=== PATIENT | male | born 1965 | race Caucasian/White ===

== ENCOUNTER 2019-06-13 05:23 | Day surgery (SDC) | payer BC, SELFPAY ==
--- NOTE | 2019-06-05 03:03 | HP_ITS ---
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 Required: No Is patient in pain?: No Allergies No Known Allergies Allergy (Verified 06/05/19 14:48) Medications Fluticasone 0.05% [Flonase Nasal [place]] 1 spray NASAL DAILY 12/26/14 [History Confirmed 06/05/19] Losartan Potassium [Cozaar] 100 mg PO DAILY 12/26/14 [History Confirmed 06/05/19] Naproxen 500 mg PO PRN PRN 06/07/17 [History Confirmed 06/05/19] hydrochlorothiazide 25 mg tablet 25 mg PO DAILY 06/05/19 [History Confirmed 06/05/19] meclizine 25 mg tablet 25 mg PO BID-TID PRN 06/05/19 [History Confirmed 06/05/19] PFSH Medical History Abdominal pain (Acute) Umbilical hernia (Acute) Hypertension (Chronic) Surgical History History of hernia repair (Acute) Family History Father Diabetes Grandmother Diabetes Social History (Updated 06/05/19 @ 15:03 by Chris Huff MD) Smoking Status: Never smoker alcohol intake: never substance use type: does not use HPI HPI HPI: CALISTA ALBRECHT, is a 54 M who presents to the office today for HPI HPI Surgical H&P: Yes HPI: CALISTA ALBRECHT, is a 54 M who presents to the office today for Preoperative evaluation for a large ventral hernia just superior and encompassing the umbilical area. I originally saw him approximately 2 years ago and at the time we were going to get him scheduled for surgery his blood pressure was significantly high. He was seen by his primary care physician medications were ordered and monitored and he is finally coming back today to get his preoperative evaluation for a ventral hernia repair with mesh. Patient states that his blood pressures have been well controlled on his medications and he does daily blood pressure monitoring at home. He states that the hernia has not gotten any larger. ROS General General: No weight change, appetite, fatigue, colon cancer, breast cancer or weakness HEENT HEENT: No difficulty swallowing, eye injury, eye surgery, swollen glands or hoarseness Endo Endocrine: No thyroid disease, diabetes mellitus, thyroid cancer, Hair loss, heat intolerance or cold intolerance Skin Skin: No rash or changing moles Breast Breast: No left breast lump, right breast lump, nipple discharge, breast pain, abnormal mammogram, abnormal US or breast enlargement Musc Musculoskeletal: No back problems, arthritis, rheumatoid arthritis, gout or joint pain Cardio Cardiovascular: Yes high blood pressure; no murmur, pacemaker, heart disease, atrial fibrillation, heart attack, heart stent, palpitations, shortness of breat with exertion or chest pain Psych Psychiatric: No depression, anxiety or hearing voices Resp Respiratory: No shortness of breath, No sleep apnea, No cough, No COPD, No asthma, No emphysema, No wheezing Gastro Gastrointestinal: Yes abdominal pain, No nausea or vomiting, No diarrhea, No constipation, No blood in stool, No acid reflux, No hemorrhoids, No ulcers, No gallbladder problem, No black,tarry stools Kory Hematologic: No blood thinners, No blood disorders, No bleeding, No anemia, No blood clots Neuro Neurologic: No system reviewed and no additional complaints, except as docu, No as per HPI, No abnormal walking, No abnormal hearing, No abnormal movements, No abnormal speech, No behavioral changes, No burning sensations, No confusion, No seizure-like activity, No unsteadiness, No dizziness, No localized weakness, No frequent falls, No headache(s), No lack of coordination, No loss of vision, No memory loss, No numbness, No other visual disturbances, No radiating pain, No restless legs, No sensory deficit, No fainting, No tingling, No tremor(s), No weakness, No other Exam Const General: no acute distress, well developed, well hydrated Orientation: oriented to person, oriented to place, oriented to time [facility] Head: normocephalic, atraumatic Ears: external ears normal Mouth: moist mucous membranes Eyes Sclera: sclerae normal Pupils: normal by confrontation Neck Neck: no lymphadenopathy noted Neck mass: No Thyroid: thyroid normal, symmetrical Chest Chest palpation & inspection: normal inspection of the chest Breast Palpation: No nipple discharge Resp Effort & Inspection: normal respiratory effort Auscultation: clear to auscultation bilaterally Percussion: percussion normal Cardio Rate: regular rate Rhythm: regular rhythm Heart Sounds: no murmurs GI Palpation: soft, no hepatosplenomegaly, no masses, tender Rectal Exam: other Other: A Hernia Just above but encompassing part of the umbilical area is noted it is completely reducible the defect is probably less than 3 cm in greatest diameter.. Rectal exam deferred. Extrem General: normal to inspection, no clubbing, cyanosis or edema Assessment & Plan Problems 1. Ventral hernia without obstruction or gangrene K43.9 Plan My plan is to perform a Ventral hernia repair with meshVentral hernia repair with mesh. The planned surgical procedure was discussed extensively with the patient. The risks, benefits, anticipated outcomes and possible complication were mentioned. The patient understands that all hernia repair surgery has a chance of recurrence and/or chronic post-operative pain. My staff has also explained the procedure in understandable terms and the patient was given the option to take printed material concerning the planned procedure. The patient had the opportunity to ask questions concerning the planned procedure. The patient freely consents to the planned procedure. Coding Level of Care Code Off vis,est,level 3 Diagnoses Ventral hernia without obstruction or gangrene K43.9 06/05/19 1503 <Electronically signed by Chris lenz MD> Date _ Chris Huff MD I have re-examined the patient. There are no clinical changes since date of exam.
[2019-06-05 14:49] VITALS: BMI 36.0
[2019-06-11 07:41] LABS: Anion Gap 6 (5-15); BUN 19 mg/dL (7-18); BUN/Creat Ratio 15.8 RATIO (10-20); Chloride 102 mmol/L (98-107); EST Glomerular Filtration Rate 67 mL/min (>60); Est Glom Filt Rate - Afr Amer 80 mL/min (>60); Glucose 104 mg/dL (74-106); Potassium 3.3 mmol/L (3.5-5.1); Sodium Level 138 mmol/L (136-145)
[2019-06-13 05:42] VITALS: BP 144/87; PULSE 74; RESP 16; TEMP 36.7; O2SAT 97
[2019-06-13] MEDS: Lactated Ringers 1,000 ML 100 ML IV (06:15)
[2019-06-13] MEDS: Cefazolin 2 GM in 0.9% Normal Saline 100 ML IV (07:21)
[2019-06-13] MEDS: 0.9% Normal Saline (Pres. free 10 ML Vial (07:35)
[2019-06-13] MEDS: BUPIVACAINE LIPOSOME/PF 20 ML VIAL OPERA.SITE (07:35)
--- NOTE | 2019-06-13 08:05 | OP.PCM_ITS ---
Problem List (1) Incisional hernia Status: Acute Qualifiers: Obstruction and gangrene presence: without obstruction or gangrene Qualified Code(s): K43.2 - Incisional hernia without obstruction or gangrene; K43.91 - Incisional hernia, without obstruction or gangrene Report of Operation Date of Procedure: 06/13/19 Pre-Operative Diagnosis: Incisional hernia without gangrene or obstruction Post-Operative Diagnosis: Same Surgery/Procedure Performed:: Incisional hernia repair with mesh. Rosa reference #[id number] lot number [id number] (11cm x 14 cm) Type of Anesthesia:: General Anesthesiologist: Osman Jean Drains: none Estimated Blood Loss (mL): < 25 cc Fluids Replaced: 600 cc LR Description of Procedure: Patient was brought into the operating room. Placed in the supine position. Under excellent general endotracheal ovation abdomen was sterilely prepped and draped in usual fashion. Local was injected infraumbilically. Curvilinear incision was made. Dissection was carried down. Skin was taken off of the hernia and the hernia was then placed back into its preperitoneal space. Remarkably I was able to create a preperitoneal window with grasping the fascia with Wheelwright's and using electrocautery I dissected a fairly large preperitoneal space and was able to place an 11 x 14 cm mesh into this defect. I tacked the mesh with a pro-tacker so that it would lie flat I then circumferentially attach the fascia to the mesh with #1 Nurolon's. I injected Exparel. The mesh laid completely flat I had good hemostasis. I brought the umbilicus back down to the fascia with a 2-0 Vicryl. Deep dermal stitches of 3-0 Vicryl. Running 4-0 Monocryl on the skin. Dermabond on the skin. [place] cotton in the umbilicus. Sterile dressings were applied. - Admit VTE Documentation VTE Present on Admission: No VTE Mechan Device Prophylaxis: SCD's VTE Pharm Prophylaxis ordered?: No Reason prophylaxis not ordered:: Treatment Not Indicated
--- NOTE | 2019-06-13 08:11 | PCM.DC.HER ---
Discharge Diet: Light diet - advance as tolerated Discharge Activity: Return to Normal Activity, May Drive - when you are no longer taking narcotic pain medications., May Shower - with the bandage in place 1-2 days after surgery. Lifting Restrictions: 20 pounds for 8 weeks. Additional Activity Instructions:: Climbing stairs is fine, walking is encouraged. Sitting in bed may be uncomfortable. Sitting up using your lateral muscles (sitting up sideways) is usually more comfortable. Do not drive, work heavy equipment of sign legal documents for 24 hours. If your hernia repair was an ingunial repair, you may have scrotal swelling, an ice pack and/or athletic support can provide more comfort. Pain medications may cause nausea, you should typically eat light foods as you take your pain medications. Pain medications may also cause constipation. If you have difficulty with this, discuss with your doctor. Call your doctor if your incision/area has: Continuous Slow Oozing, Sudden Increased Bleeding, Increased Pain/ Swelling, Increased Redness, Foul Smelling Discharge Call your doctor if you observe: Fever of 101 or Higher Suture Line Care: Avoid Pulling/Pushing, Avoid Pinching/Bending Additional Dressing/Incision Instructions:: Leave the operative bandage on for 2-3 days. When you remove the bandage, leave the steri-strips on place until your follow up appointment or they fall off. Allergies/Adverse Reactions: Allergies No Known Allergies Allergy (Verified 06/13/19 05:42) Medications to take at Discharge Fluticasone 0.05% [Flonase Nasal [place]] 1 spray NASAL DAILY 12/26/14 Losartan Potassium [Cozaar] 100 mg PO DAILY 12/26/14 hydrochlorothiazide 25 mg tablet 25 mg PO DAILY 06/05/19 Acetaminophen [Tylenol Extra Strength] 500 - 1,000 mg PO Q6H PRN PRN 06/10/19 Primary Care Physician: Maisha Lopez [Primary Care Provider] - Test Results: Test results from this visit will be discussed in further detail at your follow-up appointment, if applicable. Please Follow Up With: Chris Huff MD - [phone] When: Plan to have a follow up appointment in 7 days. Call to schedule.
[2019-06-13] MEDS: Sugammadex Sodium 200 MG/2 ML VIAL IV (08:25)
[2019-06-13 08:43] VITALS: BP 132/84; BP 144/87; PULSE 68; RESP 18; TEMP 36.5; O2SAT 88
[2019-06-13 08:45] VITALS: BP 127/85; BP 144/87; PULSE 65; RESP 16; O2SAT 98
[2019-06-13 09:00] VITALS: BP 135/84; BP 144/87; PULSE 71; RESP 16; O2SAT 94
[2019-06-13 09:08] VITALS: BP 130/88; BP 144/87; PULSE 67; RESP 16; TEMP 36.3; O2SAT 96
[2019-06-13 11:13] VITALS: BP 132/84; BP 144/87; PULSE 72; RESP 16; TEMP 36.2; O2SAT 97
== END 2019-06-13 11:20 | disposition home or self-care (01) ==
LOC: SDC 05:23 → AC 05:25
PROVIDERS: Anesthesiology; Family Provider Family Medicine; PCP Family Medicine; Referring Provider Surgery; Visit Provider Surgery
PROC: (CPT 49560; principal; 2019-06-13 07:00)
DX: K43.2 Incisional hernia without obstruction or gangrene (principal); I10 Essential (primary) hypertension; Z79.899 Other long term (current) drug therapy
CPT/HCPCS: 49560; 49568; 36415; 80048; 93005; J7120; C1781; J2405; J3490

== ENCOUNTER 2020-11-19 08:38 | Outpatient (RCR) | payer BC, SELFPAY ==
[2019-06-05 14:49] VITALS: BMI 36.0
== END 2020-12-29 23:59 ==
LOC: IMMUN 08:38
PROVIDERS: PCP Family Medicine; Referring Provider Family Medicine; Visit Provider Family Medicine
DX: Z23 Encounter for immunization (principal)
CPT/HCPCS: 0001A; 0002A; 91300

== ENCOUNTER 2021-01-03 15:00 | Inpatient (IN) | payer BC, SELFPAY ==
[2019-06-05 14:49] VITALS: BMI 36.0
[2021-01-03 15:48] VITALS: BP 133/81; PULSE 76; RESP 16; TEMP 37.3; O2SAT 94; BMI 41.3
[2021-01-03] MEDS: oxyCODONE 5 MG Tablet PO ×2 (16:59→23:34)
[2021-01-03] MEDS: Methocarbamol 500 MG Tablet 1000 MG PO ×2 (18:10→21:32)
[2021-01-03 20:35] VITALS: BP 133/73; PULSE 78; PULSE 87; RESP 18; TEMP 37.3; O2SAT 93
[2021-01-03] MEDS: Senna/Docusate Sodium 1 Tablet PO (21:31)
[2021-01-03] MEDS: APIXABAN 2.5 MG TABLET PO (21:31)
[2021-01-03] MEDS: Acetaminophen 500 MG Tablet 1000 MG PO (21:31)
[2021-01-03] MEDS: Gabapentin 300 MG Capsule PO (21:31)
--- NOTE | 2021-01-04 04:08 | NURSING ---
reviewed and agree with converting operator assessment and handoff note.
[2021-01-04] MEDS: oxyCODONE 5 MG Tablet PO ×4 (05:49→21:40)
[2021-01-04] MEDS: Acetaminophen 500 MG Tablet 1000 MG PO ×3 (05:49→21:34)
[2021-01-04] MEDS: Gabapentin 300 MG Capsule PO ×3 (05:49→21:34)
[2021-01-04 05:53] LABS: Hematocrit 33.7 % (40-54); Hemoglobin 11.1 g/dL (13.0-16.5); Mean Corp Hgb Conc 32.9 g/dL (32-36); Mean Corpuscular Hgb 31.2 pg (27.0-32.0); Mean Corpuscular Volume 94.7 fL (80-94); Mean Platelet Vol. 9.3 fl (6.2-12.0); Platelet Count 325 K/mm3 (150-450); RBC Distribution Width CV 13.2 % (11.6-14.6); RBC Distribution Width SD 45.3 fl (35.1-43.9); Red Blood Count 3.56 M/mm3 (4.6-6.2); White Blood Count 8.6 K/mm3 (4.4-11.0)
[2021-01-04 06:48] VITALS: O2SAT 96
[2021-01-04 06:53] LABS: ALB/GLOB Ratio 0.6 RATIO (0.9-2.4); AST(SGOT) 43 U/L (15-37); Alanine Aminotransfer ALT/SGPT 45 U/L (16-61); Albumin, Serum 2.4 g/dL (3.2-5.0); Alkaline Phosphatase 69 U/L (45-117); Anion Gap 5 (5-15); BUN 22 mg/dL (7-18); BUN/Creat Ratio 24.4 RATIO (10-20); Calcium,Total 8.4 mg/dL (8.5-10.1); Chloride 103 mmol/L (98-107); EST Glomerular Filtration Rate 92 mL/min (>60); Est Glom Filt Rate - Afr Amer 111 mL/min (>60); Estimated Creatinine Clearance 90.56 ml/min; Globulin 3.9 g/dL (2.2-4.2); Glucose 113 mg/dL (74-106); Magnesium 2.3 mg/dL (1.6-2.6); Phosphorus 3.4 mg/dL (2.5-4.9); Potassium 3.9 mmol/L (3.5-5.1); Protein, Total 6.3 g/dL (6.4-8.2); Sodium Level 137 mmol/L (136-145)
[2021-01-04] MEDS: Losartan Potassium 100 MG Tablet PO (07:35)
[2021-01-04] MEDS: hydroCHLOROthiazide 25 MG Tablet PO (07:36)
[2021-01-04] MEDS: APIXABAN 2.5 MG TABLET PO ×2 (07:36→21:34)
[2021-01-04] MEDS: Methocarbamol 500 MG Tablet 1000 MG PO ×4 (07:36→21:34)
[2021-01-04] MEDS: Lidocaine 5% Patch 2 PATCH TOPICAL (07:41)
[2021-01-04 09:20] VITALS: BP 136/71; PULSE 70; RESP 18; TEMP 36.4; O2SAT 95
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
[2021-01-04 15:44] LABS: Hemoglobin A1c 5.6 % (3.8-5.6)
[2021-01-04 19:39] VITALS: BP 138/74; PULSE 77; RESP 16; TEMP 37.1; O2SAT 96
[2021-01-04 21:35] VITALS: PULSE 77; O2SAT 96
[2021-01-04] MEDS: Senna/Docusate Sodium 1 Tablet PO (21:36)
--- NOTE | 2021-01-05 04:31 | NURSING ---
Reviewed and agree with [facility] documentation and assessment charting.
[2021-01-05] MEDS: Gabapentin 300 MG Capsule PO ×3 (05:20→20:54)
[2021-01-05] MEDS: oxyCODONE 5 MG Tablet PO ×5 (05:20→21:58)
[2021-01-05] MEDS: Acetaminophen 500 MG Tablet 1000 MG PO ×3 (05:20→20:54)
[2021-01-05 07:04] VITALS: O2SAT 93
[2021-01-05 07:12] VITALS: BP 130/80; PULSE 65; RESP 17; TEMP 36.4; O2SAT 94
[2021-01-05] MEDS: Losartan Potassium 100 MG Tablet PO (07:53)
[2021-01-05] MEDS: Lidocaine 5% Patch 2 PATCH TOPICAL (07:53)
[2021-01-05] MEDS: APIXABAN 2.5 MG TABLET PO ×2 (07:53→20:54)
[2021-01-05] MEDS: Methocarbamol 500 MG Tablet 1000 MG PO ×4 (07:53→20:54)
[2021-01-05] MEDS: hydroCHLOROthiazide 25 MG Tablet PO (07:53)
[2021-01-05] MEDS: Senna/Docusate Sodium 1 Tablet PO ×2 (07:54→20:53)
[2021-01-05 09:50] VITALS: PULSE 65; RESP 16
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
[2021-01-05 19:44] VITALS: BP 132/71; PULSE 18; RESP 76; TEMP 36.5; O2SAT 91
[2021-01-05 20:45] VITALS: PULSE 76; RESP 18; O2SAT 91
[2021-01-06] MEDS: Acetaminophen 500 MG Tablet 1000 MG PO ×3 (04:52→22:17)
[2021-01-06] MEDS: Gabapentin 300 MG Capsule PO ×3 (04:52→22:18)
[2021-01-06] MEDS: oxyCODONE 5 MG Tablet PO ×5 (04:53→22:17)
[2021-01-06 07:18] VITALS: BP 132/84; PULSE 85; RESP 16; TEMP 36.2; O2SAT 95
[2021-01-06] MEDS: Senna/Docusate Sodium 1 Tablet PO ×2 (09:10→22:17)
[2021-01-06] MEDS: hydroCHLOROthiazide 25 MG Tablet PO (09:10)
[2021-01-06] MEDS: Lidocaine 5% Patch 2 PATCH TOPICAL (09:10)
[2021-01-06] MEDS: APIXABAN 2.5 MG TABLET PO ×2 (09:10→22:18)
[2021-01-06] MEDS: Methocarbamol 500 MG Tablet 1000 MG PO ×4 (09:10→22:17)
[2021-01-06] MEDS: Losartan Potassium 100 MG Tablet PO (09:10)
[2021-01-06 09:48] VITALS: O2SAT 95
[2021-01-06 19:24] VITALS: BP 139/70; PULSE 76; RESP 16; TEMP 36.8; O2SAT 100
[2021-01-06 22:00] VITALS: PULSE 72; RESP 17; O2SAT 100
[2021-01-07] MEDS: Acetaminophen 500 MG Tablet 1000 MG PO ×3 (04:57→21:58)
[2021-01-07] MEDS: Gabapentin 300 MG Capsule PO ×3 (04:58→21:59)
[2021-01-07 07:38] VITALS: BP 129/80; PULSE 65; RESP 16; TEMP 36.4; O2SAT 95
[2021-01-07] MEDS: APIXABAN 2.5 MG TABLET PO ×2 (07:43→21:59)
[2021-01-07] MEDS: Losartan Potassium 100 MG Tablet PO (07:43)
[2021-01-07] MEDS: hydroCHLOROthiazide 25 MG Tablet PO (07:43)
[2021-01-07] MEDS: Methocarbamol 500 MG Tablet 1000 MG PO ×4 (07:43→21:59)
[2021-01-07] MEDS: Lidocaine 5% Patch 2 PATCH TOPICAL (07:43)
[2021-01-07] MEDS: Senna/Docusate Sodium 1 Tablet PO ×2 (07:43→21:59)
[2021-01-07] MEDS: oxyCODONE 5 MG Tablet PO ×4 (07:52→22:41)
--- NOTE | 2021-01-07 09:51 | CASEMGMT ---
Social Work Team meeting held. Patient present as well as patient spouse. Patient with insurance update due on 01/08/2021. Patient plans to discharge to home with spouse at time of discharge. Patient to continue with further care and treatment on the Rehab Unit. Patient with stairs to enter the home and will need to work on this further as well as managing pain. Will continue to follow. Melania CAMPOS, JAMILA
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
--- NOTE | 2021-01-07 18:48 | NURSING ---
received call form Ashley at Dr Gomez office ok to [facility] 01/12/21
[2021-01-07 20:03] VITALS: BP 131/74; PULSE 74; RESP 18; TEMP 36.6; O2SAT 94
[2021-01-08] MEDS: Acetaminophen 500 MG Tablet 1000 MG PO ×3 (04:55→22:34)
[2021-01-08] MEDS: oxyCODONE 5 MG Tablet PO ×4 (04:55→22:34)
[2021-01-08] MEDS: Gabapentin 300 MG Capsule PO ×3 (04:56→22:34)
[2021-01-08 07:37] VITALS: BP 118/66; PULSE 65; RESP 12; TEMP 36.7; O2SAT 95
[2021-01-08] MEDS: Senna/Docusate Sodium 1 Tablet PO ×2 (08:18→22:34)
[2021-01-08] MEDS: Methocarbamol 500 MG Tablet 1000 MG PO ×4 (08:18→22:34)
[2021-01-08] MEDS: Losartan Potassium 100 MG Tablet PO (08:18)
[2021-01-08] MEDS: APIXABAN 2.5 MG TABLET PO ×2 (08:18→22:33)
[2021-01-08] MEDS: Lidocaine 5% Patch 2 PATCH TOPICAL (18:50)
[2021-01-08 19:39] VITALS: BP 135/63; PULSE 70; RESP 18; TEMP 36.3; O2SAT 93
[2021-01-09] MEDS: Acetaminophen 500 MG Tablet 1000 MG PO ×3 (05:50→21:55)
[2021-01-09] MEDS: Gabapentin 300 MG Capsule PO ×3 (05:50→21:55)
[2021-01-09] MEDS: oxyCODONE 5 MG Tablet PO ×4 (05:58→21:56)
[2021-01-09 07:23] VITALS: BP 123/67; PULSE 61; RESP 18; TEMP 36.5; O2SAT 94
[2021-01-09] MEDS: Losartan Potassium 100 MG Tablet PO (07:39)
[2021-01-09] MEDS: Senna/Docusate Sodium 1 Tablet PO ×2 (07:39→21:55)
[2021-01-09] MEDS: Methocarbamol 500 MG Tablet 1000 MG PO ×4 (07:39→21:55)
[2021-01-09] MEDS: APIXABAN 2.5 MG TABLET PO ×2 (07:39→21:55)
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
[2021-01-09] MEDS: Lidocaine 5% Patch 2 PATCH TOPICAL (18:06)
[2021-01-09 19:08] VITALS: BP 115/81; PULSE 80; RESP 16; TEMP 35.7; O2SAT 97
--- NOTE | 2021-01-10 04:04 | NURSING ---
REVIEWED AND AGREE WITH DERMATOLOGY PROCEDURAL PHYSICIAN'S FUNCTIONAL ASSESSMENT AND HANDOFF CHARTING.
[2021-01-10] MEDS: Acetaminophen 500 MG Tablet 1000 MG PO ×3 (05:28→21:34)
[2021-01-10] MEDS: Gabapentin 300 MG Capsule PO ×3 (05:28→21:34)
[2021-01-10] MEDS: oxyCODONE 5 MG Tablet PO ×4 (06:25→22:00)
[2021-01-10] MEDS: Methocarbamol 500 MG Tablet 1000 MG PO ×4 (07:15→21:34)
[2021-01-10] MEDS: APIXABAN 2.5 MG TABLET PO ×2 (07:15→21:34)
[2021-01-10] MEDS: Losartan Potassium 100 MG Tablet PO (07:16)
[2021-01-10] MEDS: Senna/Docusate Sodium 1 Tablet PO ×2 (07:16→21:34)
[2021-01-10 08:15] VITALS: BP 117/70; PULSE 63; RESP 20; TEMP 36.6; O2SAT 95
[2021-01-10] MEDS: Lidocaine 5% Patch 2 PATCH TOPICAL (17:03)
[2021-01-10 19:15] VITALS: BP 121/66; PULSE 74; RESP 18; TEMP 36.5; O2SAT 98
[2021-01-11] MEDS: Gabapentin 300 MG Capsule PO ×3 (05:30→20:34)
[2021-01-11] MEDS: Acetaminophen 500 MG Tablet 1000 MG PO ×3 (05:30→20:35)
[2021-01-11] MEDS: oxyCODONE 5 MG Tablet PO ×4 (06:07→22:06)
[2021-01-11 06:15] LABS: Anion Gap 4 (5-15); BUN 22 mg/dL (7-18); BUN/Creat Ratio 23.6 RATIO (10-20); Calcium,Total 8.8 mg/dL (8.5-10.1); Chloride 102 mmol/L (98-107); Creatinine, Serum 0.93 mg/dL (0.70-1.30); EST Glomerular Filtration Rate 89 mL/min (>60); Est Glom Filt Rate - Afr Amer 107 mL/min (>60); Estimated Creatinine Clearance 86.58 ml/min; Glucose 102 mg/dL (74-106); Potassium 4.5 mmol/L (3.5-5.1); Sodium Level 136 mmol/L (136-145)
[2021-01-11] MEDS: Losartan Potassium 100 MG Tablet PO (07:54)
[2021-01-11] MEDS: Methocarbamol 500 MG Tablet 1000 MG PO ×4 (07:54→20:35)
[2021-01-11] MEDS: APIXABAN 2.5 MG TABLET PO ×2 (07:54→20:34)
[2021-01-11] MEDS: Senna/Docusate Sodium 1 Tablet PO ×2 (07:54→20:35)
[2021-01-11 08:46] VITALS: BP 156/85; PULSE 66; RESP 18; TEMP 36.3; O2SAT 97
[2021-01-11] MEDS: Lidocaine 5% Patch 2 PATCH TOPICAL (17:43)
[2021-01-11 19:11] VITALS: BP 100/66; PULSE 70; RESP 18; TEMP 36.5; O2SAT 98
[2021-01-11 22:00] VITALS: PULSE 73; RESP 17; O2SAT 98
[2021-01-12] MEDS: Acetaminophen 500 MG Tablet 1000 MG PO ×3 (05:34→21:22)
[2021-01-12] MEDS: Gabapentin 300 MG Capsule PO ×3 (05:34→21:23)
[2021-01-12] MEDS: oxyCODONE 5 MG Tablet PO ×4 (05:35→21:22)
[2021-01-12 07:11] VITALS: BP 144/86; PULSE 79; RESP 17; TEMP 36.6; O2SAT 98
[2021-01-12] MEDS: Methocarbamol 500 MG Tablet 1000 MG PO ×4 (08:00→21:23)
[2021-01-12] MEDS: Losartan Potassium 100 MG Tablet PO (08:00)
[2021-01-12] MEDS: APIXABAN 2.5 MG TABLET PO ×2 (08:00→21:23)
[2021-01-12] MEDS: Senna/Docusate Sodium 1 Tablet PO ×2 (08:01→21:23)
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
--- NOTE | 2021-01-12 14:36 | NURSING ---
8 russell removed for thigh. incision well approximated, YAIR. No SS infection. pt tolerated well
[2021-01-12] MEDS: Lidocaine 5% Patch 2 PATCH TOPICAL (17:21)
[2021-01-12 18:58] VITALS: BP 132/82; PULSE 69; RESP 16; TEMP 36.6; O2SAT 100
[2021-01-12 22:00] VITALS: PULSE 65; RESP 16; O2SAT 100
[2021-01-13] MEDS: oxyCODONE 5 MG Tablet PO ×4 (05:55→21:14)
[2021-01-13] MEDS: Acetaminophen 500 MG Tablet 1000 MG PO ×3 (05:55→21:13)
[2021-01-13] MEDS: Gabapentin 300 MG Capsule PO ×3 (05:55→21:13)
[2021-01-13] MEDS: Methocarbamol 500 MG Tablet 1000 MG PO ×2 (08:00→14:06)
[2021-01-13] MEDS: APIXABAN 2.5 MG TABLET PO ×2 (08:00→21:12)
[2021-01-13] MEDS: Senna/Docusate Sodium 1 Tablet PO ×2 (08:00→21:13)
[2021-01-13] MEDS: Losartan Potassium 100 MG Tablet PO (08:00)
[2021-01-13 08:27] VITALS: BP 143/65; PULSE 76; RESP 16; TEMP 36.6; O2SAT 95
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
[2021-01-13 10:37] VITALS: BP 143/65; PULSE 76
[2021-01-13] MEDS: Metoprolol(XL)Succ 25 MG Tablet PO (10:37)
[2021-01-13] MEDS: Lidocaine 5% Patch 2 PATCH TOPICAL (17:22)
[2021-01-13 19:50] VITALS: BP 108/62; PULSE 72; RESP 14; TEMP 36.3; O2SAT 100
[2021-01-14 05:49] LABS: Hematocrit 37.3 % (40-54); Hemoglobin 11.9 g/dL (13.0-16.5); Mean Corp Hgb Conc 31.9 g/dL (32-36); Mean Corpuscular Hgb 31.4 pg (27.0-32.0); Mean Corpuscular Volume 98.4 fL (80-94); Mean Platelet Vol. 8.2 fl (6.2-12.0); Platelet Count 539 K/mm3 (150-450); RBC Distribution Width CV 13.5 % (11.6-14.6); RBC Distribution Width SD 48.4 fl (35.1-43.9); Red Blood Count 3.79 M/mm3 (4.6-6.2); White Blood Count 5.5 K/mm3 (4.4-11.0)
[2021-01-14 06:11] LABS: ALB/GLOB Ratio 0.7 RATIO (0.9-2.4); AST(SGOT) 16 U/L (15-37); Alanine Aminotransfer ALT/SGPT 30 U/L (16-61); Alkaline Phosphatase 184 U/L (45-117); Anion Gap 6 (5-15); BUN 20 mg/dL (7-18); Chloride 99 mmol/L (98-107); Creatinine, Serum 1.05 mg/dL (0.70-1.30); EST Glomerular Filtration Rate 77 mL/min (>60); Est Glom Filt Rate - Afr Amer 93 mL/min (>60); Estimated Creatinine Clearance 76.69 ml/min; Globulin 4.1 g/dL (2.2-4.2); Glucose 96 mg/dL (74-106); Potassium 4.3 mmol/L (3.5-5.1); Protein, Total 7.1 g/dL (6.4-8.2); Sodium Level 133 mmol/L (136-145)
[2021-01-14] MEDS: Acetaminophen 500 MG Tablet 1000 MG PO ×3 (07:10→22:06)
[2021-01-14] MEDS: Gabapentin 300 MG Capsule PO ×3 (07:10→22:07)
[2021-01-14] MEDS: oxyCODONE 5 MG Tablet PO ×3 (07:37→22:05)
[2021-01-14 08:25] VITALS: BP 130/72; PULSE 69
[2021-01-14] MEDS: Metoprolol(XL)Succ 25 MG Tablet PO (08:25)
[2021-01-14] MEDS: APIXABAN 2.5 MG TABLET PO ×2 (08:25→22:07)
[2021-01-14] MEDS: Senna/Docusate Sodium 1 Tablet PO (08:26)
[2021-01-14 08:41] VITALS: BP 130/72; PULSE 69; RESP 17; TEMP 37.2; O2SAT 98
--- NOTE | 2021-01-14 11:35 | CASEMGMT ---
Addendum entered by Nat Limon 01/14/21 16:08: [place] [facility] [place] and it will be billed to insurance. Pt notified and agreeable. JAELYN Spann Original Note: Social Work Team meeting held today with pt and present. Pt is receiving PT/OT and progressing very well. Pt requesting discharge home tomorrow, 01/15/21 with his and is agreeable. to stay after team meeting for family training. Pt does need a wide dual wheel bariatric walker with R platform attachment. SW to [place] [facility] Pt stating if insurance will not cover the cost, he is willing to pay privately for the walker. Pt to meet with orthopedic surgeon on 01/18 and team will allow Ortho to make order for continued therapy as he sees best for pt. Pt is agreeable but does not feel continued therapy will be necessary. Team recommending leg wheel installer, pt states she will get this if pt decides he would like it. No other recommendations at this time. Pt able to return home safely. [place] [facility] [place] and phone call to [facility] with information. Discharge Date: 01/15 Discharge Disposition: Home with JAELYN Spann
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
[2021-01-14 13:45] LABS: Cholesterol 188 mg/dL (200); High Density Lipoprotein 33 mg/dL; Triglycerides 198 mg/dL; Very Low Density Lipoprotein 40 mg/dL (5-40)
[2021-01-14] MEDS: Lidocaine 5% Patch 2 PATCH TOPICAL (18:24)
[2021-01-14 22:00] VITALS: BP 136/98; PULSE 69; RESP 14; TEMP 36.8; O2SAT 100
[2021-01-15] MEDS: Acetaminophen 500 MG Tablet 1000 MG PO ×2 (06:16→12:26)
[2021-01-15] MEDS: Gabapentin 300 MG Capsule PO ×2 (06:16→12:26)
[2021-01-15 07:57] VITALS: BP 128/75; PULSE 61; RESP 14; TEMP 37.2; O2SAT 96
[2021-01-15] MEDS: APIXABAN 2.5 MG TABLET PO (08:06)
[2021-01-15 08:07] VITALS: PULSE 61
[2021-01-15] MEDS: Metoprolol(XL)Succ 25 MG Tablet PO (08:07)
[2021-01-15] MEDS: oxyCODONE 5 MG Tablet PO ×2 (08:11→12:25)
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
[2021-01-15 13:31] VITALS: BP 172/80; PULSE 72; RESP 18; TEMP 36.8
--- NOTE | 2021-01-15 14:00 | NURSING ---
Discharged home to with dc instruct and verbalized understanding.
== END 2021-01-15 14:00 | disposition home or self-care (01) | DRG 560 ==
PROVIDERS: Admitting Provider Internal Medicine; PCP Family Medicine; Visit Provider Internal Medicine
DX: S22.41XD Multiple fractures of ribs, right side, subsequent encounter for fracture with routine healing (principal); Z68.41 Body mass index [BMI] 40.0-44.9, adult; S82.202D Unspecified fracture of shaft of left tibia, subsequent encounter for closed fracture with routine healing; S82.402D Unspecified fracture of shaft of left fibula, subsequent encounter for closed fracture with routine healing; S22.20XD Unspecified fracture of sternum, subsequent encounter for fracture with routine healing; S32.511D Fracture of superior rim of right pubis, subsequent encounter for fracture with routine healing; S32.049D Unspecified fracture of fourth lumbar vertebra, subsequent encounter for fracture with routine healing; S32.059D Unspecified fracture of fifth lumbar vertebra, subsequent encounter for fracture with routine healing; V89.2XXD Person injured in unspecified motor-vehicle accident, traffic, subsequent encounter; I10 Essential (primary) hypertension; Z79.899 Other long term (current) drug therapy; I83.93 Asymptomatic varicose veins of bilateral lower extremities; R91.1 Solitary pulmonary nodule; E66.01 Morbid (severe) obesity due to excess calories; Z91.14 Patient's other noncompliance with medication regimen; E87.6 Hypokalemia
CPT/HCPCS: 36415; 80048; 80053; 80061; 83036; 83735; 84100; 85027; 97110; 97116; 97162; 97166; 97530; 97535; 97802; 97803; 99251; G0463

== ENCOUNTER 2021-03-03 11:20 | Emergency (ER) | payer BC, SELFPAY ==
[2021-03-02 15:35] VITALS: BMI 39.9
[2021-03-03 11:21] VITALS: BP 159/98; PULSE 65; RESP 18; TEMP 36.4; O2SAT 98; BMI 39.9
[2021-03-03 11:24] VITALS: BP 159/98; PULSE 63; RESP 16; O2SAT 98
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
[2021-03-03] MEDS: APIXABAN 5 MG TABLET 10 MG PO (12:04)
[2021-03-03 13:29] VITALS: BP 129/88; PULSE 67; RESP 15; O2SAT 98
== END 2021-03-03 13:30 | disposition home or self-care (01) ==
PROVIDERS: Emergency Provider Emergency Medicine; PCP Internal Medicine
DX: I82.412 Acute embolism and thrombosis of left femoral vein (principal); I10 Essential (primary) hypertension; Z79.899 Other long term (current) drug therapy
CPT/HCPCS: 99283

== ENCOUNTER 2021-03-23 15:00 | Outpatient (RCR) | payer BC, SELFPAY ==
[2021-01-20 14:16] VITALS: BMI 41.3
[2021-02-16 14:33] VITALS: BMI 41.3
[2021-03-02 15:35] VITALS: BP 164/83; PULSE 73; RESP 18; TEMP 36; BMI 39.9
[2021-03-02 17:22] LABS: Absolute Lymphocyte Count 1.39 X10^3/uL (0.83-4.51); Basophil# 0.05 X10^3/uL; Basophil% 0.8 % (0-1); Eosinophil# 0.34 X10^3/uL; Eosinophils% 5.2 % (0-5); Hematocrit 41.4 % (40-54); Hemoglobin 12.6 g/dL (13.0-16.5); Lymphocyte # 1.39 X10^3/ul (0.83-4.51); Lymphocyte % 21.1 % (19-41); Mean Corp Hgb Conc 30.4 g/dL (32-36); Mean Corpuscular Hgb 29.9 pg (27.0-32.0); Mean Corpuscular Volume 98.1 fL (80-94); Monocyte% 12.1 % (0-10); NRBC Flagged by Analyzer 0 % (0-5); Neutrophil % 60.6 % (47-70); Platelet Count 308 K/mm3 (150-450); RBC Distribution Width CV 13.4 % (11.6-14.6); RBC Distribution Width SD 48.8 fl (35.1-43.9); Red Blood Count 4.22 M/mm3 (4.6-6.2); White Blood Count 6.6 K/mm3 (4.4-11.0)
[2021-03-02 17:28] LABS: Erythrocyte Sedimentation Rate 22 mm/hr (0-20)
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
[2021-03-02 19:03] LABS: M R Staph aureus DNA By PCR Negative (Negative); Probe Check PASS; Staph aureus DNA By PCR POSITIVE (Negative)
[2021-03-02 19:04] LABS: M R Staph aureus DNA By PCR Negative (Negative); Probe Check PASS; Staph aureus DNA By PCR POSITIVE (Negative)
--- NOTE | 2021-03-03 10:49 | VDLE_ITS ---
Reason For Study: LLE edema RIGHT LEFT CFV is compressible, spontaneous, phasic, GSV is normal. competent and demonstrates normal CFV/SFJ are partially compressible with augmentation. loosely attached DVT noted. Procedure This is a venous duplex using B-mode, color FV, POP V, & T/P TRUNK are dilated, flow and spectral Doppler. NONCOMPRESSIBLE with NO flow noted in vessel Exam performed in department. C/W ACUTE DVT. The study was technically difficult. A preliminary report was called and/or faxed PTV & PERV are not well visualized but appear to DRs Kaden & PCP Adry. compressible. Took PT to ED for treatment due to loosely attached DVT in CFV/SFJ with DVT throughout FV, POP V, & T/P TRUNK. PTV & PERV are not well visualized but appear compressible. VL/Venous Duplex US, Unilateral Interpretation Summary Acute deep venous thrombosis of the left common femoral vein with thrombus eman ating from the left saphenofemoral junction and loosely attached. Acute deep venous thrombosis left femoral and popliteal and tibioperoneal trunk The left posterior tibial and peroneal veins are not well visualized Normal flow patterns right common femoral vein Ordering Physician: Tri Alfonso Referring Physician: Anita Rider Performed By: Jeanna Jefferson, ZUHAIR, RVT
[2021-03-09 15:23] VITALS: BP 176/100; PULSE 81; RESP 16; TEMP 36.6; BMI 39.9
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
[2021-03-16 14:00] VITALS: BP 169/98; PULSE 77; RESP 20; TEMP 36.4; BMI 39.9
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
[2021-03-23 13:10] VITALS: BP 174/81; PULSE 70; TEMP 36.4; BMI 39.9
--- NOTE | 2021-03-23 13:51 | PN.PCM_ITS ---
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 after Cleansing No No -Negative Pressure Wound Therapy N/A -Primary Dressing Applied C Hydrogel ($) -Other Dressing aquacel ag -Primary Dressing Covered/Secured with Dry Gauze & Dry Gauze & Roll Gauze, Roll Gauze, Secured with Secured with Tape Tape #1 L Knee -Ulcer Cleansing Rinsed/ Rinsed/ Rinsed/ Irrigated with Irrigated with Irrigated with Saline Saline Saline -Foul Odor after Cleansing No No No -Negative Pressure Wound Therapy N/A N/A -Primary Dressing Applied Aquacel AG 2x2 C Hydrogel ($) -Other Dressing fibracol plus -Primary Dressing Covered/Secured with Dry Gauze & Dry Gauze & Dry Gauze & Roll Gauze, Roll Gauze, Roll Gauze, Secured with Secured with Secured with Tape Tape Tape -VSS Monitoringel AG 2x2 1 Left -Lotion applied to leg before No No compression wrap -Compression Wrap Jemal Wrap -Other circ-aid Treatment Response Procedure Procedure Tolerated Well Tolerated Well Pain Scale: 0-10 Numeric Is Patient Pain Free? Yes Yes Yes Teaching: Wound Center Dressing Your Wound -Person Taught Patient Patient -Teaching Method Discussion, Discussion, Demonstration Demonstration -Response to teaching Verbalize Verbalize understanding understanding WC - Visit Discharge Discharge Condition Stable Stable Stable Ambulatory Status Ambulatory Ambulatory,Cane Ambulatory,Cane Transportation Private Auto Private Auto Private Auto Accompanied by self self Medication Reconcilliation completed & No Yes No provided to patient/care provider Clinical Summary of Care Provided Yes Yes Yes Wound debrided: Left knee wound Laterality: Left Type of Debridement: Excisional debridement Anesthesia Used: 4% Lidocaine Solution Depth: Down to and including healthy tissue and in the subcutaneous layer Percentage of wound debrided: 100 Instrument Used: 5mm curette, #15 blade and Forceps Tissue Removed: biofilm, hyperkeratotic tissue around the rim and sm amt slough Severity: Limited To Skin Breakdown Amount of bleeding with debridement: Mild Bleeding Controlled with: Pressure Patient tolerated procedure: Patient tolerated procedure well Operative Diagnosis: non-healing traumatic wound of the L knee Additional Wound Wound debrided: left schultz Laterality: Left Type of Debridement: Excisional debridement Anesthesia Used: 4% Lidocaine Solution Depth: Down to and including healthy tissue and in the subcutaneous layer Percentage of wound debrided: 100 Instrument Used: 3mm curette and Forceps Tissue Removed: biofilm/slough Severity: Limited To Skin Breakdown (there is a small tunnel on the lateral side of the wound that still probes to 1.2-1.3 cm. there is a thin DC coming from the opening and it has no odor. A culture was taken and it will be sent to micro along with a request for a MRSA PCR.) Assessment/Plan Assessment/Plan (1) Osteomyelitis: CODE(S): M86.9 - Osteomyelitis, unspecified (2) Acute deep vein thrombosis (DVT) of femoral vein of left lower extremity: CODE(S): I82.412 - Acute embolism and thrombosis of left femoral vein (3) Delayed wound healing: CODE(S): T14.8XXD - Other injury of unspecified body region, subsequent encounter (4) Cellulitis and abscess of left leg: CODE(S): L03.116 - Cellulitis of left lower limb; L02.416 - Cutaneous abscess of left lower limb (5) History of open reduction and internal fixation (ORIF) procedure: CODE(S): Z98.890 - Other specified postprocedural states PLAN: 1. Await the results of the CT scan and also the MRSA PCR and wound culture. suspect we are going to have to consult Dr. Betts for his opinion on whether or not he needs continued antibiotics. 2. He will take the second week of the Doxycycline and return to the [facility] in 1 week for a recheck. 3. Continue Fibracol dressing. 4. I am very concerned that the wound over the knee is paula and healing well now but the schultz wound is not healing and I suspect the reason is there is still infection present.
--- NOTE | 2021-03-23 14:40 | CT_ITS ---
CT Lower Extremity W/O Contrast Injection INDICATION:56 years old Female presenting with nonhealing left lower extremity lesions. TECHNIQUE: Sequential axial 2.5 mm collimated images are obtained through the left tibia and fibula. No intravenous contrast was administered. Images were reformatted in sagittal and coronal planes and forwarded for preoperative planning. COMPARISON: None. FINDINGS: Contiguous 2.5 mm axial images of the left lower extremity was obtained , images demonstrate degenerative changes, no evidence of cortical irregularities or lucencies to suggest fractures, no evidence of lytic or sclerotic bone lesions are seen. An intramedullary bakari is visualized within the tibia, screws visualized in the proximal and distal tibial metaphysis. Well-corticated bony margins delineate the location of the fracture of the mid to distal diaphysis of the tibia. Near-anatomic alignment with no evidence of displacement or angulation is visualized. New bone growth visualized along the cortex/periosteum at both mandibular the fractures site extending from approximately 3.5 cm above and for 0.2 cm below the fracture plane, subtle lucent areas visualized underlying the periosteal reaction at this level on soft tissue windows series 2 there is extensive overlying soft tissue stranding visualized at this level but most prominent along the anteromedial aspect where there is an overlying skin defect visualized on series 2 image 141. Prominent soft tissue stranding and low-attenuation in the subcutaneous soft tissues is also visualized in the anterolateral aspect of the upper leg overlying the patellar tendon and laterally, a subtle skin defect consistent with the wand is visualized on axial series 2 image 42. Subcutaneous soft tissue stranding visualized overlying the ankle joint, a subtle lucency is visualized traversing the articular surface of the distal tibia visualized on axial series 2 image 179 and sagittal series 601 image 40. The ankle mortise is maintained, the talar dome demonstrates no evidence of fracture cortical irregularity, subtle subchondral lucency/cysts visualized, degenerative changes visualized with no evidence of cortical irregularity and lucency to suggest a fracture. No evidence of dislocation is seen. No evidence of ankle joint effusion. IMPRESSION: Degenerative changes visualized, cannot rule out osteomyelitis would recommend further evaluation with a contrast-enhanced MRI. Electronically Signed: Owen Kurtz MD at 16:43 EDT Tel , Service support , CT/Extremity Lower without Contra
[2021-03-24 11:38] LABS: M R Staph aureus DNA By PCR Negative (Negative); Probe Check PASS; Specimen Processing Control PASS; Staph aureus DNA By PCR NEGATIVE (Negative)
== END 2021-03-23 23:59 | disposition home or self-care (01) ==
LOC: WC 15:00
PROVIDERS: PCP Internal Medicine; Referring Provider Internal Medicine; Visit Provider Internal Medicine
DX: L03.116 Cellulitis of left lower limb (principal); L02.416 Cutaneous abscess of left lower limb; S82.202D Unspecified fracture of shaft of left tibia, subsequent encounter for closed fracture with routine healing; V49.9XXD Car occupant (driver) (passenger) injured in unspecified traffic accident, subsequent encounter; I82.412 Acute embolism and thrombosis of left femoral vein; T14.8XXD Other injury of unspecified body region, subsequent encounter; M79.89 Other specified soft tissue disorders; R60.9 Edema, unspecified; M79.605 Pain in left leg; T81.49XD Infection following a procedure, other surgical site, subsequent encounter; L08.9 Local infection of the skin and subcutaneous tissue, unspecified
CPT/HCPCS: 11042; 11045; 36415; 73700; 85025; 85652; 86140; 87070; 87075; 87077; 87186; 87205; 87640; 93971; 99213; G0463

== ENCOUNTER 2021-04-08 17:00 | Outpatient (RCR) | payer BC, SELFPAY ==
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
--- NOTE | 2021-07-02 08:29 | HP.PT.NRP ---
CALISTA ALBRECHT was seen in my office for initial evaluation on 03/18/21. The following Plan of Care was established for this patient: Initial Frequency: 3x /Week Initial Duration: 4-6 Weeks Patient/Client Instruction: Educate patient on: Condition, Plan of Care For the Purpose of:: To decrease pain, To increase ROM, To improve muscle performance and motor function, To increase tolerance to activity/condition/position, To improve ability of physical actions for home/community/work/leisure Therapeutic Exercise to Include: Strength training, Flexibilty training, Gait and locomotor training For the Purpose of:: To decrease pain, To increase ROM, To improve muscle performance and motor function, To increase tolerance to activity/condition/position, To improve gait and locomotor functions Manual Therapy Techniques to Include: Mobilization, Passive ROM For the Purpose of:: To increase ROM, To improve muscle performance and motor function This patient was last seen in our office 04/08/21. Pertinent comments regarding their Physical therapy will appear below: Pt seen 7 visits of POC and was improving. He neglected to schedule or attend any further visits. At this point, it has been over two months adn I will discontinue from my care due to nonattendance. At this point I will be discontinuing this patient from physical therapy. I would be happy to see this patient again in the future if found appropriate by the physician. Thank you! Osman Atkinson, DPT, OCS, CSCS Balance/Gait/Functional tests - Balance/Special Test Scores Functional Gait Assessment Score: 25 % Disability: 16.6700 Lower Extremity Functional Score: 38
== END 2021-04-08 19:00 | disposition home or self-care (01) ==
LOC: PT 17:00
PROVIDERS: PCP Internal Medicine; Referring Provider Internal Medicine; Visit Provider Internal Medicine
DX: Z47.89 Encounter for other orthopedic aftercare (principal); S82.202D Unspecified fracture of shaft of left tibia, subsequent encounter for closed fracture with routine healing; V89.2XXD Person injured in unspecified motor-vehicle accident, traffic, subsequent encounter
CPT/HCPCS: 97110; 97162

== ENCOUNTER → 2021-04-12 06:24 | Outpatient (CLI) | payer BC, SELFPAY ==
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
--- NOTE | 2021-04-12 06:26 | MRI_ITS ---
STUDY: MRI LOWER EXTREMITY LEFT TIBIA/FIBULA WITH AND WITHOUT CONTRAST REASON FOR EXAM: Male, 56 years old. osteomyelitis -- has an intramedullary bakari in the tibia, 2 areas of non healing traumatic wound TECHNIQUE: Standardized fat and water weighted pulse sequences were obtained in all 3 orthogonal planes, post contrast administration. 25ml IV Dotarem was administered for the contrast portion of the examination. COMPARISON: 03/23/2021. FINDINGS: Metallic artifact limits marrow evaluation. Fracture fragments in near-anatomic alignment. Callus formation with mild cortical irregularity at the fracture site (coronal image 19 series 4). No new fracture line. No dislocation. Nonunited comminuted fibular fracture (coronal image 15 series 4). Complex rim-enhancing fluid collection overlies the midportion of the distal tibia adjacent to the previous fracture site (coronal image 19 series 4, axial image 36 and sagittal image 15 series 8). Fluid collection measures approximately 2.8 cm x 1.8 cm x 2.5 cm. Overlying deep ulceration. Diffuse soft tissue swelling with mild enhancement. Muscle edema surrounds the fracture site at the anterior lateral and posterior medial compartments with mild enhancement. MRI/Lower Ext No Joint W/WO Cont IMPRESSION: Suspected acute tibial osteomyelitis at the fracture site with adjacent cellulitis, muscle edema/myositis, deep ulcer and small rim-enhancing abscess Nonunited comminuted fibular fracture Electronically Signed: Osman Solares DO at 10:32 EDT Tel , Service support ,
[2021-04-12 06:56] LABS: CREATININE FINGERSTICK 0.7 mg/dL (0.70-1.30); EGFR FINGERSTICK > 60.0000 mL/min (>60)
== END ==
PROVIDERS: PCP Internal Medicine; Referring Provider Internal Medicine; Visit Provider Internal Medicine
DX: M86.9 Osteomyelitis, unspecified (principal)
CPT/HCPCS: 70030; 73720; 99213; A9575; G0463

== ENCOUNTER 2021-04-13 15:00 | Outpatient (RCR) | payer BC, SELFPAY ==
[2021-03-24 00:17] VITALS: BP 174/81; PULSE 70; RESP 20; TEMP 36.4; BMI 39.9
[2021-03-30 13:24] VITALS: BP 130/73; PULSE 80; TEMP 36.8; BMI 39.9
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
[2021-04-06 14:52] VITALS: BP 157/89; PULSE 68; RESP 16; TEMP 36.1; BMI 39.9
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
--- NOTE | 2021-04-13 16:10 | PCM.PN.BLA ---
Progress Note The MRI showed a complex rim-enhancing fluid collection overlying the midportion of the distal tibia adjacent to the previous fracture which measures 2.8 cm x 1.8 cm x 2.5 cm. This was overlying a deep ulceration. There was diffuse soft tissue swelling with mild enhancement, muscle edema surrounds the fracture site at the anterior lateral and posterior medial compartments with mild enhancement. The impression is suspected acute tibial osteomyelitis at the fracture site with adjacent cellulitis, muscle edema/myositis, deep ulcer and small rim-enhancing abscess. I contacted Dr. Esparza's office and spoke to his PA Ashley who was in contact with Dr. Esparza who is currently out of town. He will call one of his colleagues to admit Katy to [facility]. Katy was to go to the ED. We copied his labs, the MRI report, all microbiology reports and my recent progress notes. He has DVT in the LLE and is on Eliquis which will need to be stopped briefly for surgery. He will need to be seen by ID. The MRI images of the LLE were uploaded to [facility] and the admitting physician will be able to access on their computers at [facility]. I answered Katy's questions and he left to report to the ED at [facility].
[2021-04-14 11:26] VITALS: BP 200/105; PULSE 89; TEMP 37.2; BMI 39.9
== END 2021-04-13 15:10 | disposition home or self-care (01) ==
LOC: WC 15:00
PROVIDERS: PCP Internal Medicine; Referring Provider Internal Medicine; Visit Provider Internal Medicine
DX: L03.116 Cellulitis of left lower limb (principal); L02.416 Cutaneous abscess of left lower limb; T14.8XXD Other injury of unspecified body region, subsequent encounter; I82.412 Acute embolism and thrombosis of left femoral vein; R60.0 Localized edema; S82.202D Unspecified fracture of shaft of left tibia, subsequent encounter for closed fracture with routine healing; V49.9XXD Car occupant (driver) (passenger) injured in unspecified traffic accident, subsequent encounter; M79.89 Other specified soft tissue disorders; L57.0 Actinic keratosis; Z86.14 Personal history of Methicillin resistant Staphylococcus aureus infection; T81.49XD Infection following a procedure, other surgical site, subsequent encounter
CPT/HCPCS: 11042; 99212; G0463

== ENCOUNTER → 2021-04-27 08:40 | Outpatient (CLI) | payer BC, SELFPAY ==
--- NOTE | 2021-04-27 08:46 | VDLE_ITS ---
Reason For Study: fracture Procedure LEFT This is a venous duplex using B-mode, color GSV is normal. flow and spectral Doppler. CFV is compressible, spontaneous, phasic, Exam performed in department. competent, and demonstrates normal The exam was abbreviated due to the COVID 19 augmentation. protocol. LT PerV is compressible. The exam was diagnostic. FV and POP V are partially compressible with Difficult to image calf veins. decreased flow. A preliminary report was called and/or faxed T/P Trunk and PTV are partially compressible. to Dr. Esparza. Improvement from previous study. VL/Venous Duplex US, Unilateral Interpretation Summary Chronic deep venous thrombosis left femoral, popliteal, tibioperoneal trunk, an d posterior tibial veins. This demonstrates improvement from the previous examination of March 03, 2021 Patent and compressible left great saphenous vein COVID-19 protocol utilized Ordering Physician: [place] Esparza Performed By: Guevara Martinez RVT
== END ==
PROVIDERS: PCP Internal Medicine
DX: S82.202B Unspecified fracture of shaft of left tibia, initial encounter for open fracture type I or II (principal)
CPT/HCPCS: 93971

== ENCOUNTER → 2021-05-24 13:28 | Outpatient (CLI) | payer BC, SELFPAY ==
[2021-05-24 13:47] LABS: Absolute Neutrophil Count 4.3 X10^3/uL (2.0-7.7); Basophil# 0.05 X10^3/uL; Basophil% 0.8 % (0-1); Eosinophils% 3.2 % (0-5); Hematocrit 40.5 % (40-54); Hemoglobin 13.2 g/dL (13.0-16.5); Lymphocyte % 19.2 % (19-41); Mean Corp Hgb Conc 32.6 g/dL (32-36); Mean Corpuscular Hgb 30.3 pg (27.0-32.0); Mean Corpuscular Volume 92.9 fL (80-94); Mean Platelet Vol. 9.7 fl (6.2-12.0); Monocyte# 0.53 X10^3/uL; Monocyte% 8.5 % (0-10); NRBC Flagged by Analyzer 0 % (0-5); Neutrophil # 4.26 X10^3/uL (2.7-7.7); Platelet Count 346 K/mm3 (150-450); RBC Distribution Width CV 12.9 % (11.6-14.6); RBC Distribution Width SD 43.8 fl (35.1-43.9); Red Blood Count 4.36 M/mm3 (4.6-6.2); White Blood Count 6.3 K/mm3 (4.4-11.0)
[2021-05-24 13:59] LABS: ALB/GLOB Ratio 0.8 RATIO (0.9-2.4); AST(SGOT) 16 U/L (15-37); Alanine Aminotransfer ALT/SGPT 23 U/L (16-61); Albumin, Serum 3.1 g/dL (3.2-5.0); Alkaline Phosphatase 112 U/L (45-117); Anion Gap 5 (5-15); BUN 21 mg/dL (7-18); BUN/Creat Ratio 20.2 RATIO (10-20); CPK Total, Creatine Kinase 28 U/L (39-308); Calcium,Total 9.3 mg/dL (8.5-10.1); Chloride 106 mmol/L (98-107); Creatinine, Serum 1.04 mg/dL (0.70-1.30); EST Glomerular Filtration Rate 78 mL/min (>60); Est Glom Filt Rate - Afr Amer 94 mL/min (>60); Globulin 3.7 g/dL (2.2-4.2); Glucose 86 mg/dL (74-106); Potassium 4.4 mmol/L (3.5-5.1); Protein, Total 6.8 g/dL (6.4-8.2); Sodium Level 139 mmol/L (136-145)
== END ==
PROVIDERS: PCP Internal Medicine; Referring Provider Internal Medicine Infectious Disease; Visit Provider Internal Medicine Infectious Disease
DX: T84.623A Infection and inflammatory reaction due to internal fixation device of left tibia, initial encounter (principal); L02.416 Cutaneous abscess of left lower limb
CPT/HCPCS: 80053; 82550; 85025

== ENCOUNTER → 2021-05-31 14:17 | Outpatient (CLI) | payer BC, SELFPAY ==
[2021-05-31 14:51] LABS: Absolute Lymphocyte Count 1.16 X10^3/uL (0.83-4.51); Absolute Neutrophil Count 3.7 X10^3/uL (2.0-7.7); Basophil# 0.04 X10^3/uL; Basophil% 0.7 % (0-1); Eosinophil# 0.18 X10^3/uL; Eosinophils% 3.2 % (0-5); Hemoglobin 13.3 g/dL (13.0-16.5); Lymphocyte # 1.16 X10^3/ul (0.83-4.51); Lymphocyte % 20.5 % (19-41); Mean Corp Hgb Conc 32.4 g/dL (32-36); Mean Corpuscular Hgb 30.6 pg (27.0-32.0); Mean Corpuscular Volume 94.5 fL (80-94); Monocyte# 0.52 X10^3/uL; Monocyte% 9.2 % (0-10); NRBC Flagged by Analyzer 0 % (0-5); Neutrophil # 3.74 X10^3/uL (2.7-7.7); Neutrophil % 66.2 % (47-70); Platelet Count 349 K/mm3 (150-450); RBC Distribution Width CV 12.8 % (11.6-14.6); RBC Distribution Width SD 44.3 fl (35.1-43.9); Red Blood Count 4.34 M/mm3 (4.6-6.2); White Blood Count 5.7 K/mm3 (4.4-11.0)
[2021-05-31 15:10] LABS: ALB/GLOB Ratio 0.8 RATIO (0.9-2.4); AST(SGOT) 15 U/L (15-37); Alanine Aminotransfer ALT/SGPT 18 U/L (16-61); Albumin, Serum 3.1 g/dL (3.2-5.0); Alkaline Phosphatase 113 U/L (45-117); Anion Gap 6 (5-15); BUN 16 mg/dL (7-18); BUN/Creat Ratio 16.1 RATIO (10-20); CPK Total, Creatine Kinase 37 U/L (39-308); Chloride 106 mmol/L (98-107); EST Glomerular Filtration Rate 82 mL/min (>60); Est Glom Filt Rate - Afr Amer 99 mL/min (>60); Globulin 3.7 g/dL (2.2-4.2); Glucose 88 mg/dL (74-106); Potassium 4.3 mmol/L (3.5-5.1); Protein, Total 6.8 g/dL (6.4-8.2); Sodium Level 139 mmol/L (136-145)
== END ==
PROVIDERS: PCP Internal Medicine; Visit Provider Internal Medicine Infectious Disease
DX: T84.623A Infection and inflammatory reaction due to internal fixation device of left tibia, initial encounter (principal); L02.416 Cutaneous abscess of left lower limb
CPT/HCPCS: 80053; 82550; 85025

== ENCOUNTER → 2021-06-07 13:45 | Outpatient (CLI) | payer BC, SELFPAY ==
[2021-06-07 13:49] LABS: Absolute Lymphocyte Count 0.96 X10^3/uL (0.83-4.51); Absolute Neutrophil Count 2.3 X10^3/uL (2.0-7.7); Basophil# 0.05 X10^3/uL; Basophil% 1.3 % (0-1); Eosinophil# 0.22 X10^3/uL; Eosinophils% 5.6 % (0-5); Lymphocyte # 0.96 X10^3/ul (0.83-4.51); Lymphocyte % 24.6 % (19-41); Mean Corp Hgb Conc 32.5 g/dL (32-36); Mean Corpuscular Hgb 30.7 pg (27.0-32.0); Mean Corpuscular Volume 94.6 fL (80-94); Mean Platelet Vol. 9.9 fl (6.2-12.0); Monocyte# 0.33 X10^3/uL; Monocyte% 8.4 % (0-10); NRBC Flagged by Analyzer 0 % (0-5); Neutrophil # 2.34 X10^3/uL (2.7-7.7); Neutrophil % 59.8 % (47-70); Platelet Count 338 K/mm3 (150-450); RBC Distribution Width SD 44.9 fl (35.1-43.9); Red Blood Count 4.23 M/mm3 (4.6-6.2); White Blood Count 3.9 K/mm3 (4.4-11.0)
[2021-06-07 14:03] LABS: ALB/GLOB Ratio 0.9 RATIO (0.9-2.4); AST(SGOT) 12 U/L (15-37); Alanine Aminotransfer ALT/SGPT 16 U/L (16-61); Alkaline Phosphatase 116 U/L (45-117); Anion Gap 6 (5-15); BUN 18 mg/dL (7-18); BUN/Creat Ratio 14.9 RATIO (10-20); CPK Total, Creatine Kinase 43 U/L (39-308); Chloride 109 mmol/L (98-107); Creatinine, Serum 1.21 mg/dL (0.70-1.30); EST Glomerular Filtration Rate 65 mL/min (>60); Est Glom Filt Rate - Afr Amer 79 mL/min (>60); Globulin 3.4 g/dL (2.2-4.2); Glucose 146 mg/dL (74-106); Potassium 3.9 mmol/L (3.5-5.1); Protein, Total 6.4 g/dL (6.4-8.2); Sodium Level 142 mmol/L (136-145)
== END ==
PROVIDERS: PCP Internal Medicine; Referring Provider Internal Medicine Infectious Disease; Visit Provider Internal Medicine Infectious Disease
DX: T84.623A Infection and inflammatory reaction due to internal fixation device of left tibia, initial encounter (principal); L02.416 Cutaneous abscess of left lower limb
CPT/HCPCS: 80053; 82550; 85025

== ENCOUNTER → 2021-06-14 14:05 | Outpatient (CLI) | payer BC, SELFPAY ==
[2021-06-14 14:38] LABS: Absolute Lymphocyte Count 1.09 X10^3/uL (0.83-4.51); Absolute Neutrophil Count 3.1 X10^3/uL (2.0-7.7); Basophil# 0.05 X10^3/uL; Eosinophil# 0.19 X10^3/uL; Eosinophils% 3.8 % (0-5); Hematocrit 40.4 % (40-54); Lymphocyte # 1.09 X10^3/ul (0.83-4.51); Lymphocyte % 21.5 % (19-41); Mean Corp Hgb Conc 32.2 g/dL (32-36); Mean Corpuscular Hgb 30.4 pg (27.0-32.0); Mean Corpuscular Volume 94.4 fL (80-94); Monocyte# 0.61 X10^3/uL; Monocyte% 12.1 % (0-10); NRBC Flagged by Analyzer 0 % (0-5); Neutrophil # 3.11 X10^3/uL (2.7-7.7); Neutrophil % 61.4 % (47-70); Platelet Count 293 K/mm3 (150-450); RBC Distribution Width CV 13.3 % (11.6-14.6); RBC Distribution Width SD 45.7 fl (35.1-43.9); Red Blood Count 4.28 M/mm3 (4.6-6.2); White Blood Count 5.1 K/mm3 (4.4-11.0)
[2021-06-14 14:49] LABS: ALB/GLOB Ratio 0.8 RATIO (0.9-2.4); AST(SGOT) 12 U/L (15-37); Alanine Aminotransfer ALT/SGPT 17 U/L (16-61); Albumin, Serum 2.9 g/dL (3.2-5.0); Alkaline Phosphatase 114 U/L (45-117); Anion Gap 6 (5-15); BUN 17 mg/dL (7-18); BUN/Creat Ratio 16.3 RATIO (10-20); CPK Total, Creatine Kinase 41 U/L (39-308); Calcium,Total 8.8 mg/dL (8.5-10.1); Chloride 108 mmol/L (98-107); Creatinine, Serum 1.04 mg/dL (0.70-1.30); EST Glomerular Filtration Rate 78 mL/min (>60); Est Glom Filt Rate - Afr Amer 94 mL/min (>60); Globulin 3.5 g/dL (2.2-4.2); Glucose 102 mg/dL (74-106); Protein, Total 6.4 g/dL (6.4-8.2); Sodium Level 142 mmol/L (136-145)
== END ==
PROVIDERS: PCP Internal Medicine; Visit Provider Internal Medicine Infectious Disease
DX: T84.623A Infection and inflammatory reaction due to internal fixation device of left tibia, initial encounter (principal); L02.416 Cutaneous abscess of left lower limb
CPT/HCPCS: 80053; 82550; 85025

== ENCOUNTER 2021-09-06 12:41 | Outpatient (CLI) | payer BC, SELFPAY ==
--- NOTE | 2021-09-06 12:47 | VDLE_ITS ---
Reason For Study: Swelling Procedure LEFT This is a venous duplex using B-mode, color GSV is normal. flow and spectral Doppler. CFV is compressible, spontaneous, phasic, Exam performed in department. competent, and demonstrates normal A preliminary report was called and/or faxed augmentation. to Dr. Rider. PTV is compressible. LT PerV is compressible. Lt FV, Lt Pop V, and Lt T/P Trunk are non dilated and partially compressible with decreased flow Very difficult to visualize Lt calf veins. VL/Venous Duplex US, Unilateral Interpretation Summary Technically difficult examination. Findings noted are partial compressibility o f the left femoral, popliteal, tibioperoneal trunk with diminished flow noted suspicious for possib le deep venous thrombosis but not definitive. Patent and compressible left great saphenous vein Clinical correlation indicated secondary to the technical challenges of this ex am Ordering Physician: Anita Rider Referring Physician: Anita Rider Performed By: Lani Licona, TAECS, RVT
== END 2021-09-06 23:59 | disposition home or self-care (01) ==
LOC: CVS 12:44
PROVIDERS: PCP Internal Medicine; Referring Provider Internal Medicine; Visit Provider Internal Medicine
DX: I82.412 Acute embolism and thrombosis of left femoral vein (principal)
CPT/HCPCS: 93971

== ENCOUNTER → 2023-02-13 | Outpatient (CLI) | payer BC, SELFPAY ==
[2023-02-13 06:44] LABS: Absolute Lymphocyte Count 1.11 X10^3/uL (0.83-4.51); Absolute Neutrophil Count 2.9 X10^3/uL (2.0-7.7); Basophil# 0.04 X10^3/uL; Basophil% 0.8 % (0-1); Eosinophil# 0.21 X10^3/uL; Eosinophils% 4.4 % (0-5); Hematocrit 47.3 % (40-54); Hemoglobin 15.2 g/dL (13.0-16.5); Lymphocyte # 1.11 X10^3/ul (0.83-4.51); Lymphocyte % 23.3 % (19-41); Mean Corp Hgb Conc 32.1 g/dL (32-36); Mean Corpuscular Hgb 31.3 pg (27.0-32.0); Mean Corpuscular Volume 97.5 fL (80-94); Mean Platelet Vol. 9.7 fl (6.2-12.0); Monocyte# 0.52 X10^3/uL; Monocyte% 10.9 % (0-10); NRBC Flagged by Analyzer 0 % (0-5); Neutrophil # 2.88 X10^3/uL (2.7-7.7); Neutrophil % 60.4 % (47-70); Platelet Count 260 K/mm3 (150-450); RBC Distribution Width CV 12.5 % (11.6-14.6); RBC Distribution Width SD 44.4 fl (35.1-43.9); Red Blood Count 4.85 M/mm3 (4.6-6.2); White Blood Count 4.8 K/mm3 (4.4-11.0)
[2023-02-13 07:18] LABS: ALB/GLOB Ratio 0.8 RATIO (0.9-2.4); AST(SGOT) 18 U/L (15-37); Alanine Aminotransfer ALT/SGPT 23 U/L (16-61); Albumin, Serum 3.2 g/dL (3.2-5.0); Alkaline Phosphatase 80 U/L (45-117); Anion Gap 5 (5-15); BUN 24 mg/dL (7-18); BUN/Creat Ratio 21.6 RATIO (10-20); Calcium,Total 8.7 mg/dL (8.5-10.1); Chloride 110 mmol/L (98-107); Cholesterol 206 mg/dL (200); Creatinine, Serum 1.11 mg/dL (0.70-1.30); EST Glomerular Filtration Rate 72 mL/min (>60); Est Glom Filt Rate - Afr Amer 87 mL/min (>60); Globulin 3.9 g/dL (2.2-4.2); Glucose 104 mg/dL (74-106); High Density Lipoprotein 36 mg/dL; PSA,Total - Annual Screen 0.47 ng/mL (0.00-4.00); Potassium 3.9 mmol/L (3.5-5.1); Protein, Total 7.1 g/dL (6.4-8.2); Sodium Level 140 mmol/L (136-145); Triglycerides 166 mg/dL; Very Low Density Lipoprotein 33 mg/dL (5-40)
[2023-02-13 08:23] LABS: Insulin 11.8 mU/L (2.6-37.6); Vitamin D,25 Hydroxy 52.3 ng/mL
== END | disposition home or self-care (01) ==
LOC: LAB 05:57
PROVIDERS: PCP Internal Medicine; Referring Provider Internal Medicine; Visit Provider Internal Medicine
DX: I10 Essential (primary) hypertension (principal); E87.6 Hypokalemia; E78.6 Lipoprotein deficiency; R73.01 Impaired fasting glucose; E55.9 Vitamin D deficiency, unspecified; Z12.5 Encounter for screening for malignant neoplasm of prostate
CPT/HCPCS: 36415; 80053; 80061; 82306; 83525; 84153; 85025; G0103

== ENCOUNTER 2023-03-30 15:30 | Outpatient (RCR) | payer BC, SELFPAY ==
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
--- NOTE | 2023-07-20 08:41 | HP.PT.NRP ---
Patient Information Patient Information: CALISTA ALBRECHT was seen in my office for initial evaluation on 02/16/23. The following Plan of Care was established for this patient: POC Established Initial Frequency: 1x/Week Initial Duration: 6 Weeks Anticipated Interventions Patient/Client Instruction: Educate patient on: Benefits of Fitness Program Therapeutic Exercise to Include: Strength training, Endurance training, Balance training, Coordination, Agility training, Body mechanics, Postural training, Flexibilty training, Gait and locomotor training, Neuromotor development, Passive ROM, Active ROM, Dynamic Lumbar Stabilization and Scapular Strength/Stabilization Last Seen Last Seen: This patient was last seen in our office . Pertinent comments regarding their Physical therapy will appear below: Patient appropriate to continue home exercise program and be d/c At this point I will be discontinuing this patient from physical therapy. I would be happy to see this patient again in the future if found appropriate by the physician. Thank you! Lisa Irizarry, DPT Balance/Gait/Functional tests Balance/Special Test Scores Lower Extremity Functional Score: 58
== END 2023-03-30 19:00 | disposition home or self-care (01) ==
LOC: PT 15:30
PROVIDERS: PCP Internal Medicine; Referring Provider Internal Medicine; Visit Provider Internal Medicine
DX: S82.402D Unspecified fracture of shaft of left fibula, subsequent encounter for closed fracture with routine healing (principal); S82.202D Unspecified fracture of shaft of left tibia, subsequent encounter for closed fracture with routine healing; M25.562 Pain in left knee
CPT/HCPCS: 97162; 97530

== ENCOUNTER → 2025-01-29 | Outpatient (CLI) | payer BC, SELFPAY ==
[2025-01-29 09:28] LABS: Hematocrit 45.8 % (40-54); Hemoglobin 15.6 g/dL (13.0-16.5); Immature Granulocytes Count 0.010 X10^3/uL (0.0-0.0); Mean Corp Hgb Conc 34.1 g/dL (32-36); Mean Corpuscular Volume 93.7 fL (80-94); Mean Platelet Vol. 9.4 fl (6.2-12.0); NRBC Flagged by Analyzer 0 % (0-5); Platelet Count 255 K/mm3 (150-450); RBC Distribution Width CV 12.4 % (11.6-14.6); RBC Distribution Width SD 42.8 fl (35.1-43.9); Red Blood Count 4.89 M/mm3 (4.6-6.2); White Blood Count 4.8 K/mm3 (4.4-11.0)
[2025-01-29 11:13] LABS: AST(SGOT) 22 U/L (<=37); Alanine Aminotransfer ALT/SGPT 18 U/L (<=46); Albumin, Serum 4.1 g/dL (3.4-4.8); Alkaline Phosphatase 70 U/L (40-129); Anion Gap 10 (5-15); BUN 19 mg/dL (4-19); BUN/Creat Ratio 19.4 RATIO (10-20); Calcium,Total 9.4 mg/dL (7.6-11.0); Carbon Dioxide 23.7 mmol/L (21.0-32.0); Chloride 104 mmol/L (98-108); Cholesterol 215 mg/dL (<=200); Globulin 3.0 g/dL (2.2-4.2); Glucose 106 mg/dL (70-99); Low Density Lipoprotein Calc. 142 mg/dL; Magnesium 2.0 mg/dL (1.5-2.2); PSA,Total - Annual Screen 0.55 ng/mL (0.02-4.00); Potassium 4.1 mmol/L (3.3-5.1); Triglycerides 169 mg/dL; Very Low Density Lipoprotein 34 mg/dL (5-40); Vitamin D,25 Hydroxy 42.9 ng/mL (30-100); cholesterol:hdl ratio screen 5.48
== END | disposition home or self-care (01) ==
PROVIDERS: PCP Internal Medicine; Referring Provider Internal Medicine; Visit Provider Internal Medicine
DX: Z00.00 Encounter for general adult medical examination without abnormal findings (principal); I10 Essential (primary) hypertension; E78.5 Hyperlipidemia, unspecified; R73.01 Impaired fasting glucose; Z12.5 Encounter for screening for malignant neoplasm of prostate; Z13.220 Encounter for screening for lipoid disorders
CPT/HCPCS: 36415; 80053; 80061; 82306; 83036; 83525; 83735; 84153; 84443; 85025; G0103